=== PATIENT | male | born 1965 | race Caucasian/White ===

== ENCOUNTER 2016-10-31 11:07 | Emergency (ER) | payer OTHER ==
[~2016-10-31] VITALS: Ht 177.8 cm; Wt 63.6 kg
[2016-10-31 12:04] VITALS: BP 111/76
== END 2016-10-31 12:05 | disposition home or self-care (01) ==
LOC: EMS 11:08
DX: L23.9 Allergic contact dermatitis, unspecified cause (principal); L29.9 Pruritus, unspecified; Z88.6 Allergy status to analgesic agent
CPT/HCPCS: 99283